=== PATIENT | male | born 1960 | race Caucasian/White ===

== ENCOUNTER 2017-07-05 10:52 | Emergency (ER) | payer OTHER ==
[~2017-07-05] VITALS: Ht 180.3 cm; Wt 102.1 kg
== END 2017-07-05 11:18 | disposition home or self-care (01) ==
LOC: ED 10:52
DX: M25.511 Pain in right shoulder (principal)

== ENCOUNTER 2025-01-28 17:33 | Emergency (ER) | payer MEDICARE ==
[~2025-01-28] VITALS: Ht 180.3 cm; Wt 91.1 kg
[~2025-01-28 17:33] MED LIST: JOCK ITCH RELIE14 GM TOP
--- OUTSIDE RECORDS SUMMARY | 2025-01-28 17:40 | XMS ---
PreManage Notification: FABIENNE KRISHNAMURTHY Security [employer] Events No recent Security Events currently on file CRITERIA MET - [facility] [place] - 2 Visits in 30 Days CARE PROVIDERS There are no care providers on record at this time. Tory has no Care Guidelines for this patient. Al VISIT COUNT (12 MO.) [address] [place] [facility] (Garry Castañeda) TOTAL 2 NOTE: Visits indicate total known visits. ED/C VISIT TRACKING (12 MO.) 01/28/2025 17:34 [facility] [place] TYPE: Emergency COMPLAINT: - WOUND [facility]: Emergency DIAGNOSES: - Acute pancreatitis without necrosis or infection, unspecified - Epigastric pain - Inflammatory liver disease, unspecified - Type 2 diabetes mellitus with hyperglycemia - Chest Pain - cp,sob INPATIENT VISIT TRACKING (12 MO.) 01/01/2025 04:05 [facility] Garry HAMEED (Garry Castañeda) TYPE: Medical Surgical DIAGNOSES: - Acute cholecystitis - Acute pancreatitis without necrosis or infection, unspecified - Alcohol abuse, uncomplicated - Alcohol induced acute pancreatitis without necrosis or infection - Alcoholic hepatitis without ascites - Epigastric pain - Hypoxemia - Inflammatory liver disease, unspecified - Left testicular pain - Other chest pain - Other specified abnormal findings of blood chemistry - Other stimulant abuse, uncomplicated - Pain in right shoulder - Presence of cardiac pacemaker - Type 2 diabetes mellitus with hyperglycemia [email or web address]
[2025-01-28] MEDS ORDERED: LANTUS SOL100 UNIT/1 SUB-Q (18:55)
[2025-01-28] MEDS ORDERED: INSULIN LI100 UNIT/2 SUB-Q (18:57)
[2025-01-28] MEDS ORDERED: BACTRIM 400-801 EACH PO (19:12)
[2025-01-28] MEDS ORDERED: TRIMETHOPRIM/SULFAMETHOXAZOLE 1 EA HOME.PACK PO ONE (19:15)
[2025-01-28 19:29] VITALS: BP 136/86
== END 2025-01-28 19:30 | disposition home or self-care (01) ==
LOC: ED 17:33
DX: L03.116 Cellulitis of left lower limb (principal); M70.52 Other bursitis of knee, left knee; E11.9 Type 2 diabetes mellitus without complications; Z87.891 Personal history of nicotine dependence; Z79.4 Long term (current) use of insulin; Z79.899 Other long term (current) drug therapy
CPT/HCPCS: 73560; 99283; A9270